=== PATIENT | female | born 1955 | race American Indian/Alaskan Native ===

== ENCOUNTER 2017-11-04 09:16 | Day surgery (SDC) | payer OTHER ==
[2017-11-04] MEDS ORDERED: NACL 0.9% 1000 ML 1,000 ML ONE (10:41)
[2017-11-04] MEDS ORDERED: WATER FOR IRRIG STERILE ONE (11:34)
[2017-11-04] MEDS ORDERED: WATER FOR IRRIG STERILE IR ONE (11:34)
[2017-11-04] MEDS ORDERED: DIPRIVAN 10 MG/ML IV ONE ×3 (11:44→12:37)
--- NOTE | 2017-11-04 11:52 | Anesthesia Day of Surgery ---
Anesthesia Day of Surgery - Day of Surgery Patient Examined: Yes Patient H&P Reviewed: Yes Patient is NPO: Yes
--- NOTE | 2017-11-04 11:52 | Anesthesia Consultation ---
Anesthesia Consult and Med Hx Date of service: 11/04/17 - Airway Anesthetic Teeth Evaluation: Dentures (upper) ROM Head & Neck: Adequate Mental/Hyoid Distance: Adequate Mallampati Class: Class III - Pre-Operative Health Status ASA Pre-Surgery Classification: ASA3 Proposed Anesthetic Plan: MAC - Cardiovascular System Hx Hypertension: Yes - Central Nervous System Hx Psychiatric Problems: Yes (anxiety, depression) - Endocrine Hx Non-Insulin Dependent Diabetes: Yes - Other Systems Hx Cancer: (colon neosplasm) Hx Obesity: Yes (BMI 38.3)
[2017-11-04] MEDS ORDERED: NACL 0.9% 1000 ML 1,000 ML IV SCH (12:00)
--- NOTE | 2017-11-04 13:36 | Operative Report ---
Operative Report Operative Report: Date of procedure: 11/04/2017 Procedure: Colonoscopy with multiple rectal polyp hot biopsy polypectomies and ablations, Cold biopsy of sigmoid colon, snare polypectomy of transverse colon polyp, cold snare polypectomy of ascending colon polyp with hemoclip application. Attending physician: Lionel Alonzo MD Molding Engineer: Lionel Alonzo MD Indication: Patient is a 62-year-old male who presents for surveillance colonoscopy because of past history of colon polyps and also history of colon mass status post segmental colectomy. This colonoscopy serves to evaluate patient so that treatment may be directed based on the findings. Consent: Informed consent was obtained after advising the patient and family regarding nature of this procedure, its indications, potential benefits as well as possible complications including but not limited to bleeding perforation and adverse reaction to medication, infection as well as other cardiopulmonary complications. An informed written and verbal consent was then obtained after due opportunity was provided for questions and answers. Monitoring: Patient was monitored continuously with pulse oximetry and electrocardiographic recordings as well as blood pressure recordings. Vital signs remained stable throughout this procedure with no untoward events. Preoperative assessment: Patient was assessed immediately prior to this procedure for capacity to tolerate monitored anesthesia care and moderate sedation as well as general anesthesia. Patient's ASA classification is 2, Mallampati class is 2, Hyomental distance is 3. Instrument: Algaeonn video colonoscope Medications: Propofol given intravenously in divided doses. For details please refer to anesthesia records. Description of procedure: Patient was placed in the left lateral decubitus position after achieving sedation, a digital rectal examination was performed following which the colonoscope was introduced into the anal verge and advanced to the cecum which was identified by the cecal valve, the appendiceal orifice, as well as by the cecal strap and direct transillumination. The colonoscope was subsequently withdrawn with careful inspection of all mucosal surfaces. Patient tolerated this procedure well and was subsequently taken to the recovery room. The following findings were noted. Findings: Patient had multiple diminutive flat polyps in the rectum. These measured between 3-4 mm. All polyps were removed by hot biopsy polypectomy and some of the polyps were ablated. In all, there were 15 of these polyps in the rectum. There was an area that had been previously tattooed in the sigmoid colon representing a prior polypectomy site. Biopsies were obtained from this area for review to rule out any residual polyp. In the transverse colon, there was a sessile 1 cm polyp. This was removed by snare electrocautery and retrieved. In the ascending colon, there was a diminutive but pedunculated polyp which was removed by cold snare polypectomy. There was bleeding at the polypectomy site therefore a Hemoclip was applied at the site. Adjoining this, was a flat diminutive polyp which was ablated. In the transverse colon, there was an area of prior surgery with removal of a colon mass. The anastomosis appeared relatively normal. Several biopsies were obtained from the anastomosis to rule out any residual malignancy. The rest of the colon was normal. There were a few scattered diminutive diverticula. On the retroflexed view of the anal verge, patient had prominent internal hemorrhoids. Impression: Multiple diminutive rectal polyps status post hot biopsy polypectomy and ablation. Transverse colon polyp status post snare polypectomy with electrocautery. Ascending colon polyp, status post cold snare polypectomy and Hemoclip application. Ascending colon polyp status post ablation. Mild diverticulosis. Internal hemorrhoids. Normal transverse colon anastomosis status post biopsies Normal tattooed prior sigmoid colon polypectomy site status post cold biopsies Plan: Follow pathology report. High-fiber diet. Repeat colonoscopy in 3-5 years.
[2017-11-04 13:45] VITALS: BP 122/69
--- NOTE | 2017-11-04 13:54 | Post Anesthesia Evaluation ---
- Post Anesthesia Evaluation Patient Participated: Yes Airway Patent: Yes Stable Respiratory Function: Yes Nausea/Vomiting: No Temp > 96.8F: Yes Pain Manageable: Yes Adequeate Hydration: Yes Anesthesia Complications: No
--- NOTE | 2017-11-04 17:35 | Discharge Summary ---
Short Stay Discharge Plan Activity: advance as tolerated Weight Bearing Status: Weight Bear as Tolerated Diet: regular Additional Instructions: Post Sedation D/C Instruction When you return home you may resume your regular diet unless otherwise directed. -Go directly home from the hospital and rest quietly. You may resume normal activities tomorrow. -Do NOT drive, return to work, operate any machinery or make any important personal or business decisions today. -Do NOT drink any alcohol or take nerve or sleeping drugs. They add to the effects of the medicine still present in your body. Follow up with: HANNY BALTAZAR MD [Other] - 7 Days
== END 2017-11-04 09:17 | disposition home or self-care (01) ==
LOC: GIO 09:16
PROVIDERS: ATTEND Internal Medicine Gastroenterology
DX: Z12.11 Encounter for screening for malignant neoplasm of colon (principal); D12.2 Benign neoplasm of ascending colon; D12.3 Benign neoplasm of transverse colon; K63.5 Polyp of colon; D12.8 Benign neoplasm of rectum; K57.30 Diverticulosis of large intestine without perforation or abscess without bleeding; Z85.038 Personal history of other malignant neoplasm of large intestine; K64.8 Other hemorrhoids; I10 Essential (primary) hypertension; F41.9 Anxiety disorder, unspecified; E11.9 Type 2 diabetes mellitus without complications; F32.9 Major depressive disorder, single episode, unspecified; Z68.38 Body mass index [BMI] 38.0-38.9, adult; E78.00 Pure hypercholesterolemia, unspecified; Z79.899 Other long term (current) drug therapy; Z98.0 Intestinal bypass and anastomosis status
CPT/HCPCS: 45380; 45385; 82962; 88305; J2704; J7030